=== PATIENT | male | born 1965 | race Caucasian/White ===

== ENCOUNTER → 2024-09-07 | Outpatient (CLI) | payer MEDICARE, SELFPAY ==
--- NOTE | 2024-09-07 12:00 | XR_ITS ---
Examination: Liver Elastography Exam date and time: September 07, 2024 1359 hours INDICATIONS: Fatty liver 2 months TECHNIQUE AND FINDINGS: Sonographic images of the liver, 18.5 cm fatty liver Tissue stiffness average 1.4 m/s in the normal range IMPRESSION: Normal tissue stiffness average
== END | disposition home or self-care (01) ==
PROVIDERS: PCP Physician Assistant Medical; Referring Provider Physician Assistant Medical; Visit Provider Physician Assistant Medical
DX: K76.0 Fatty (change of) liver, not elsewhere classified (principal)
CPT/HCPCS: 76981